=== PATIENT | female | born 1955 | race Caucasian/White ===

== ENCOUNTER 2017-01-03 13:17 | Emergency (ER) | payer MEDICAID, OTHER ==
[~2017-01-03] VITALS: Wt 69.0 kg
[~2017-01-03 13:17] MED LIST: ACET1TAB40 PO; IBUP400T22 PO; POLY10DR19 LEFT EYE
--- NOTE | 2017-01-03 14:26 | ERD ---
ER Documentation Chief Complaint Date/Time DATE: 01/03/17 TIME: 14:24 Chief Complaint LOWER LEFT DENTAL/JAW SWELLING X 2 DAYS HPI 61 -year-old female presents with left-sided inner mouth pain and swelling for the past 2 days. She states that she had cough, congestion and URI symptoms last week that resolved on their own. She reports swelling on the inside, that is tender to palpation. She has no trouble swelling, lesions, drooling. She denies trauma. ROS All systems reviewed and are negative except as per history of present illness. Medications Home Meds Active Scripts Ibuprofen* (Motrin*) 600 Mg Tab, 600 MG PO Q6, #30 TAB Prov:ALPHONSO ROSENBERG PA-C 01/03/17 Amoxicillin* (Amoxicillin*) 500 Mg Cap, 500 MG PO TID for 10 Days, CAP Prov:ALPHONSO ROSENBERG PA-C 01/03/17 Ibuprofen* (Motrin*) 400 Mg Tab, 400 MG PO Q6, #15 TAB Prov:REDDY OSMAN MD 05/31/16 Acetaminophen with Codeine (Acetaminophen-Cod #3 Tablet) 1 Each Tablet, 1 TAB PO Q6H Y for PAIN, #14 TAB Prov:REDDY OSMAN MD 05/31/16 Polymyxin B Sulfate-TMP* (Polymyxin B-TMP Eye Drops*) 10 Ml Drops, 1 DROP LEFT EYE QID for 7 Days, EA Prov:REDDY OSMAN MD 05/31/16 Allergies Allergies: Coded Allergies: No Known Drug Allergies (Verified Allergy, Unknown, 05/31/16) PMhx/Soc History of Surgery: No Anesthesia Reaction: No Hx Neurological Disorder: No Hx Respiratory Disorders: No Hx Cardiac Disorders: No Hx Psychiatric Problems: No Hx Miscellaneous Medical Probl: No Hx Alcohol Use: No Hx Substance Use: No Hx Tobacco Use: No Physical Exam Vitals Vital Signs Date Time Temp Pulse Resp B/P Pulse Ox O2 Delivery O2 Flow Rate FiO2 01/03/17 13:18 98.9 71 18 146/74 99 Physical Exam General: Well-developed, well-nourished. The patient appears in no acute distress. HEENT: Head is normocephalic, atraumatic. No scleral icterus. Left inferior buccal mucosa has a 1cm area of induration, with superficial shallow erythematous ulceration. Oropharynx is clear, dentition intact. no trismus. Neck: Supple. Nontender. Lungs: Clear to auscultation. Normal air movement. Heart: Regular rate and rhythm. S1 and S2 are normal. No murmurs, gallops, or rubs Extremities: No clubbing or cyanosis. Moving extremities x 4. No weakness. Neurologic: Alert and oriented 3. No focal deficits. Normal speech and gait. Skin: Normal turgor. No rash or lesions. Procedures/MDM 61-year-old female presents to the emergency department with mouth pain, there is evidence of an ulcerative process with induration, consistent with stomatitis. Patient will become her for oral mary grace as well, with amoxicillin, she'll be also given ibuprofen for symptomatic treatment. There are no signs of an abscess, cellulitis, trismus, mass. Patient's blood pressure was elevated (>120/80) but appears stable without evidence of hypertension emergency or urgency. The patient was counseled about the risks of hypertension and urged to pursue outpatient monitoring and therapy within a week with their primary care physician. Departure Diagnosis: Primary Impression: Stomatitis Condition: Good ALPHONSO ROSENBERG PA-C Jan 03, 2017 14:26
[2017-01-03] MEDS ORDERED: AMO500 PO (14:27)
[2017-01-03] MEDS ORDERED: IBUP-1542 PO (14:27)
== END 2017-01-03 14:26 | disposition home or self-care (01) ==
LOC: E/R 13:17
DX: K12.1 Other forms of stomatitis (principal)
CPT/HCPCS: 99283

== ENCOUNTER 2017-06-06 15:35 | Emergency (ER) | payer OTHER ==
[~2017-06-06] VITALS: Ht 152.4 cm; Wt 49.0 kg
[~2017-06-06 15:35] MED LIST changes: +AMO500 PO; +IBUP-1542 PO
[2017-06-06 15:50] VITALS: Ht 152.4 cm; Wt 49.0 kg
[2017-06-06] MEDS ORDERED: ERYT1OIN6 LEFT EYE (17:36)
--- NOTE | 2017-06-07 00:27 | ERD ---
ER Documentation Chief Complaint Date/Time DATE: 06/07/17 TIME: 00:24 Chief Complaint LEFT EYE PAIN AND REDNESS X 1 WEEK,NO VISION CHANGES HPI 62-year-old female patient with no significant past medical history presents the ED complaining of bilateral eye redness and eyelid swelling that started 3- 4 days ago. Patient reports that she also noted some cream-colored discharge in her bilateral eyes. She had some slight photophobia. Denies any eye pain or vision loss. Denies any blurred vision, diplopia, nausea, vomiting, headache , weakness, pain, shortness of breath. Denies any cough, rhinorrhea, fever, chills. ROS All systems reviewed and are negative except as per history of present illness. Medications Home Meds Active Scripts Erythromycin (Erythromycin Opth) 3.5 Gm Oint..gm., 1 APPLIC LEFT EYE QID for 7 Days, #1 Prov:FRAN MESA PA-C 06/06/17 Ibuprofen* (Motrin*) 600 Mg Tab, 600 MG PO Q6, #30 TAB Prov:ALPHONSO ROSENBERG PA-C 01/03/17 Amoxicillin* (Amoxicillin*) 500 Mg Cap, 500 MG PO TID for 10 Days, CAP Prov:ALPHONSO ROSENBERG PA-C 01/03/17 Ibuprofen* (Motrin*) 400 Mg Tab, 400 MG PO Q6, #15 TAB Prov:REDDY OSMAN MD 05/31/16 Acetaminophen with Codeine (Acetaminophen-Cod #3 Tablet) 1 Each Tablet, 1 TAB PO Q6H Y for PAIN, #14 TAB Prov:REDDY OSMAN MD 05/31/16 Polymyxin B Sulfate-TMP* (Polymyxin B-TMP Eye Drops*) 10 Ml Drops, 1 DROP LEFT EYE QID for 7 Days, EA Prov:REDDY OSMAN MD 05/31/16 Allergies Allergies: Coded Allergies: No Known Drug Allergies (Verified Allergy, Unknown, 05/31/16) PMhx/Soc Medical and Surgical Hx: pt denies Medical Hx, pt denies Surgical Hx History of Surgery: No Anesthesia Reaction: No Hx Neurological Disorder: No Hx Respiratory Disorders: No Hx Cardiac Disorders: No Hx Psychiatric Problems: No Hx Miscellaneous Medical Probl: No Hx Alcohol Use: No Hx Substance Use: No Hx Tobacco Use: No Smoking Status: Never smoker Physical Exam Vitals Vital Signs Date Time Temp Pulse Resp B/P Pulse Ox O2 Delivery O2 Flow Rate FiO2 06/06/17 15:50 98.8 65 18 141/70 98 Physical Exam Const: [id number], well-nourished. In no acute distress. Head: Atraumatic, normocephalic Eyes: Slight injected left conjunctiva. PERRLA. EOMI. Erythematous left upper eyelid with some slight purulent discharge noted. ENT: Normal external ear. Ear canal without erythema. Tympanic membrane pearly lui without effusion or bulging. Nasal canal clear with normal turbinates. Moist oropharynx without tonsillar exudates. Non-erythematous pharynx. Uvula midline. No drooling. No trismus. Neck: No cervical midline tenderness. Full range of motion. No meningismus. No cervical lymphadenopathy. No JVD. Resp: Clear to auscultation bilaterally. No wheezing, rhonchi, rales, or crackles. No accessory muscle use. No retractions. Cardio: Regular rate and rhythm. No murmurs, rubs or gallops. Abd: Soft, non tender, non distended. Normal bowel sounds. No palpable masses. No rebound tenderness. No guarding. Negative McBurney's Point. Negative Reilly's Sign. Skin: Normal skin turgor. No petechiae or rashes Back: No midline tenderness. No CVA tenderness. Ext: No cyanosis, or edema. Distal pulses intact bilaterally. Neur: Awake and alert. Normal gait. Normal coordination. Cranial Nerves II- VII intact. Normal finger to nose. Muscle strength 5/5. Sensation intact. Psych: Normal Mood and Affect Procedures/MDM 62-year-old female patient presents tot the ED complaining of bilateral eye redness, left eye lid swelling. Patient is afebrile and nontoxic-appearing. Patient has normal vital signs. Patient symptoms could likely be secondary to blepharitis and conjunctivitis. Patient's ocular symptoms have stabilized while they have been evaluated in the department and are appropriate for outpatient work up. Low suspicion for ruptured globe, retinal detachment, periorbital cellulitis, acute angle closure glaucoma, deep space infection, iritis, traumatic hyphema, subconjunctival hemorrhage, corneal abrasion, corneal ulcer, pterygium, hypopyon, blepharitis, hordeolum, chalazion, or other emergent conditions. Medications: Erythromycin ointment Strictly instructed patient to follow up with an telecommunications field engineer within 24 hours. Instructed patient to return to the ED for any worsening symptoms. Patient is hemodynamically stable. Patient's questions were answered. Patient understood and agreed with discharge plan. Departure Diagnosis: Primary Impression: Blepharitis Blepharitis type: unspecified type Laterality: left Eyelid: upper Qualified Code: H01.004 - Blepharitis of left upper eyelid, unspecified type Condition: Stable Patient Instructions: What Is Blepharitis? Referrals[facility] Usted se salazar hecho un examen mdico de control que le indica que no est en king condicin que requiera tratamiento urgente en el Departamento de Emergencia. Un estudio ms profundo y el tratamiento de crane condicin pueden esperar sin ningn riesgo hasta que usted sea atendida/o en el consultorio de crane mdico o king cl roger. Es responsabilidad suya arreglar king niko para el seguimiento del seng. MANEJO DE CONDICIONES NO URGENTES EN EL FUTURO 1) Si usted tiene un mdico de atencin primaria: Usted debera llamar a crane mdico de atencin primaria antes de venir al departamento de emergencia. Despus de las horas de consultorio, crane doctor o crane asociado/a est disponible por telfono. El mdico o enfermero de ami en el servicio telefnico puede asesorarle por simon medio para atender el problema, o seng contrario se puede programar king niko. 2) Si usted no tiene un mdico de atencin primaria: Llame al mdico o clnica de referencia que aparece abajo scotty las horas de consultorio para hacer king niko para que le vean. CLINICAS: [facility] 699 [phone] [address] [facility] 204 [phone] [address] [facility] 815 [phone] [address] [facility] [phone] [place] [id number] [phone] [facility]. [phone] [address] [facility]. [facility] () Usted se salazar hecho un examen mdico de control que le indica que no est en king condicin que requiera tratamiento urgente en el Departamento de Emergencia. Un estudio ms profundo y el tratamiento de crane condicin pueden esperar sin ningn riesgo hasta que usted sea atendida/o en el consultorio de crane mdico o king cl roger. Es responsabilidad suya arreglar king niko para el seguimiento del seng. MANEJO DE CONDICIONES NO URGENTES EN EL FUTURO 1) Si usted tiene un mdico de atencin primaria: Usted debera llamar a crane mdico de atencin primaria antes de venir al departamento de emergencia. Despus de las horas de consultorio, crane doctor o crane asociado/a est disponible por telfono. El mdico o enfermero de ami en el servicio telefnico puede asesorarle por simon medio para atender el problema, o seng contrario se puede programar king niko. 2) Si usted no tiene un mdico de atencin primaria: Llame al mdico o condado institucions de referencia que aparece abajo scotty las horas de consultorio para hacer king niko para que le vean. SI USTED NO PUEDE PAGAR PARA DEJON UN MEDICO puede ir a: [facility] [address] [place] [address] [facility] [address] [place] [address] [facility] [address] [place] [address] [facility] [address] [place] [address] [facility] Hours: Mon - Fri 9:00 AM - 5:00 PM Additional Instructions: Llame al doctor MAANA y elmer king NIKO PARA DENTRO DE 1-2 BRAMBILA. Si los s ntomas no mejoran el seguimiento con un Oftalmologa. Dgale a la secretaria que nosotros le instruimos hacer esta niko.Avise o llame si crane condicin se empeora antes de la niko. Regresa aqui si peor o no mejor. La medicina que se le recet puede causarle sueo.NO DEBE MANEJAR NI OPERAR MAQUINARIAS PELIGROSAS mientras esta tomando esta medicina! FRAN MESA PA-C Jun 07, 2017 00:27 FRAN MESA PA-C Jun 07, 2017 00:27
== END 2017-06-06 17:44 | disposition home or self-care (01) ==
LOC: FTE 15:35
DX: H01.004 Unspecified blepharitis left upper eyelid (principal)
CPT/HCPCS: 99283